=== PATIENT | female | born 1960 | race Caucasian/White ===

== ENCOUNTER 2021-05-15 22:09 | Emergency (ER) | payer OTHER ==
[~2021-05-15 22:09] MED LIST: LIDOCAINE PATCH REMOVAL MC SCH
[2021-05-15 22:20] VITALS: BP 121/68; PULSE 82; TEMP 97.1; BMI 26.5
[2021-05-15] MEDS ORDERED: ACETAMINOPHEN 500 MG TABLET (FP) PO ONE (22:34)
[2021-05-15] MEDS ORDERED: LIDOCAINE 5% TOPICAL PATCH TP ONE (23:19)
[2021-05-15] MEDS ORDERED: ACETAMINOPHEN 325 MG TABLET (FP) ONE (23:23)
[2021-05-15] MEDS ORDERED: LIDOCAINE 5% TOPICAL PATCH ONE (23:24)
[2021-05-15] MEDS ORDERED: IBUPROFEN 600 MG TABLET (FP) PO ONE (23:36)
[2021-05-16] MEDS ORDERED: IBUPROFEN 400 MG TABLET (FP) PO ONE (00:01)
== END 2021-05-16 00:22 | disposition home or self-care (01) ==
LOC: JER 22:09
DX: R55 Syncope and collapse (principal); S09.90XA Unspecified injury of head, initial encounter; S63.502A Unspecified sprain of left wrist, initial encounter; W19.XXXA Unspecified fall, initial encounter
CPT/HCPCS: 70450-TC; 72125-TC; 72131-TC; 73110-TC-LT-FY; 73130-TC-LT-FY; 82962; 93005; 93010; 99284-25